=== PATIENT | male | born 1975 | race Two or more races ===

== ENCOUNTER 2024-10-06 23:57 | Inpatient (IN) | payer OTHER ==
[~2024-10-06] VITALS: Ht 190.5 cm; Wt 136.1 kg
--- NOTE | 2024-10-07 00:31 | NUR ---
SE RECIBE MASCULINO ALERTA Y ORIENTADO X3 QUIEN REFIERE DOLOR EN CUADRANTE INFERIOR ASHLEE. PACIENTE REFIERE HX DE DIVERTICULITIS. SE MIDEN S/V Y SE UBICA.
[2024-10-07] MEDS ORDERED: METRONIDAZOLE/SODIUM CHLORIDE 500 MG/100 ML PIGGYBACK IV STA (02:04)
[2024-10-07] MEDS ORDERED: KETOROLAC TROMETHAMINE 30 MG VIAL IV STA (02:04)
[2024-10-07] MEDS ORDERED: CIPROFLOXACIN IN 5 % DEXTROSE 400 MG/200 ML PIGGYBAG IV STA (02:04)
[2024-10-07] MEDS ORDERED: 0.9 % SODIUM CHLORIDE 1,000 ML IV ONE (02:15)
--- NOTE | 2024-10-07 02:57 | NUR ---
SE ORIENTA A PTE SOBRE TX MEDICO EL MISMO INDICA ENTENDER Y ACEPTAR, SE SAL MUESTRAS DE LAB MAS SE ADMINISTRAN MEDICAMENTOS SEGUNN ORDEN MEDICA BAJO MEDIDAS ASEPTICAS.
[2024-10-07 03:41] LABS: BASO % 0.4 % (0.1-1.2); EOS # 0.10 (0.04-0.54); EOS % 0.9 % (0.7-7.0); LYMPH # 0.74 (1.18-3.74); LYMPH % 6.5 % (19.3-53.1); MEAN PLATELET VOLUME 10.00 fl (9.4-12.4); MONO # 1.24 (0.24-0.82); MONO % 10.9 % (4.7-12.5); NEUT # 9.19 (1.56-6.13); NEUT % 80.9 % (34.0-71.1); RED CELL DISTRIBUTION WIDTH 15.2 % (11.6-14.4)
[2024-10-07 03:49] LABS: INR 1.11
[2024-10-07 04:49] LABS: ALT/SGPT 31.0 U/L (12-78); AST/SGOT 23.0 U/L (15-37); BILIRUBIN TOTAL 1.78 mg/dL (0.3-1.2); BUN CREA RATIO 13.0 (7.0-25.0); CREATININE SERUM 1.34 mg/dL (0.70-1.30); GFR 57.14; GLOBULINA 4.2 G/DL (2.4-3.5); GLUCOSE FASTING 115.0 mg/dL (65-100); OSMOLALITY SERUM 278.0 MOSM/KG (275-295)
[2024-10-07 06:27] LABS: URINE CAST 1.61 uL (0.0-1.40); URINE EPITHELIAL CELLS 13.3 uL (0.0-38.8); URINE RBC 21.7 uL (0.0-20.8); URINE WBC 2.0 uL (0.0-23.2)
[2024-10-07 06:53] LABS: URINE APPEARANCE Clear; URINE BILIRRUBIN Small (NEGATIVE); URINE BLOOD Negative; URINE COLOR Orange; URINE GLUCOSE Negative (NEGATIVE); URINE KETONE 15 (NEGATIVE); URINE LEUKOCYTE Trace; URINE NITRATE Negative; URINE PROTEIN Trace (NEGATIVE); URINE UROBILINOGEN 1.0 E.U./dl
[2024-10-07 07:35] LABS: URINE BACTERIA 3.5 uL (0.0-1933)
[2024-10-07] MEDS ORDERED: NIFEDIPINE 10 MG CAPSULE PO ONE (08:15)
[2024-10-07] MEDS ORDERED: MORPHINE SULFATE 4 MG/ML CARTRIDGE IV ONE (10:30)
[2024-10-07] MEDS ORDERED: CEFTRIAXONE SODIUM 2,000 MG VIAL IV STA (14:30)
[2024-10-07] MEDS ORDERED: FAMOTIDINE/PF 20 MG/2 ML VIAL IV SCH (14:32)
[2024-10-07] MEDS ORDERED: RINGERS SOLUTION,LACTATED 1,000 ML IV SCH (14:45)
[2024-10-07] MEDS ORDERED: MORPHINE SULFATE 4 MG/ML VIAL IV PRN (15:00)
[2024-10-07] MEDS ORDERED: ENALAPRILAT DIHYDRATE 1.25 MG/ML VIAL IV PRN (15:00)
[2024-10-07 15:24] LABS: COVID-19 AG NEGATIVE (NEGATIVE)
[2024-10-07] MEDS ORDERED: MORPHINE SULFATE 4 MG/ML CARTRIDGE IV PRN (17:00)
[2024-10-07 20:00] VITALS: BP 162/98; O2SAT 95
[2024-10-08 01:43] VITALS: BP 137/83; O2SAT 98
[2024-10-08 07:48] VITALS: BP 136/84; O2SAT 96
[2024-10-08 08:21] LABS: BASO % 0.4 % (0.1-1.2); EOS # 0.15 (0.04-0.54); EOS % 1.4 % (0.7-7.0); LYMPH # 0.82 (1.18-3.74); LYMPH % 7.8 % (19.3-53.1); MEAN PLATELET VOLUME 10.20 fl (9.4-12.4); MONO # 1.04 (0.24-0.82); MONO % 9.9 % (4.7-12.5); NEUT # 8.43 (1.56-6.13); NEUT % 80.0 % (34.0-71.1); RED CELL DISTRIBUTION WIDTH 15.3 % (11.6-14.4)
[2024-10-08 08:35] LABS: ERYTHROCYTE SEDIMENTATION RATE 21 mm/hr (0-15)
[2024-10-08] MEDS ORDERED: CEFTRIAXONE SODIUM 2,000 MG VIAL IV SCH (09:00)
[2024-10-08 09:22] LABS: ALT/SGPT 24.0 U/L (12-78); AST/SGOT 14.0 U/L (15-37); BILIRUBIN TOTAL 0.92 mg/dL (0.3-1.2); BUN CREA RATIO 11.0 (7.0-25.0); CREATININE SERUM 1.07 mg/dL (0.70-1.30); GFR 74.08; GLOBULINA 3.4 G/DL (2.4-3.5); GLUCOSE FASTING 85.0 mg/dL (65-100); OSMOLALITY SERUM 280.0 MOSM/KG (275-295)
[2024-10-08 15:29] VITALS: BP 139/70; O2SAT 95
[2024-10-08] MEDS ORDERED: AA 4.25%/CAL/LYTES/DEXT 5% 1,000 ML PERIFERAL SCH (17:00)
[2024-10-08 18:38] LABS: CHOL HDL RATIO 5.6 (0-5.0); HDL 30.0 mg/dl (40-60); LDL 106.0 mg/dl (0-130); VLDL 30.0 (0-39)
[2024-10-09 00:46] VITALS: BP 136/80; O2SAT 98
[2024-10-09 08:00] VITALS: BP 138/74; O2SAT 96
[2024-10-09] MEDS ORDERED: LACTOBACILLUS ACIDOPHILUS 1 CAP CAP PO SCH (13:35)
[2024-10-09 17:07] VITALS: BP 67/41; O2SAT 95
[2024-10-09 18:39] VITALS: BP 166/91
[2024-10-10 02:27] VITALS: O2SAT 95
[2024-10-10 07:28] LABS: BASO % 0.5 % (0.1-1.2); EOS # 0.32 (0.04-0.54); EOS % 4.2 % (0.7-7.0); LYMPH # 1.24 (1.18-3.74); LYMPH % 16.4 % (19.3-53.1); MEAN PLATELET VOLUME 10.10 fl (9.4-12.4); MONO # 0.60 (0.24-0.82); MONO % 7.9 % (4.7-12.5); NEUT # 5.34 (1.56-6.13); NEUT % 70.7 % (34.0-71.1); RED CELL DISTRIBUTION WIDTH 14.6 % (11.6-14.4)
[2024-10-10 08:29] LABS: ALT/SGPT 24.0 U/L (12-78); AST/SGOT 19.0 U/L (15-37); BILIRUBIN TOTAL 0.66 mg/dL (0.3-1.2); BUN CREA RATIO 13.0 (7.0-25.0); CREATININE SERUM 0.87 mg/dL (0.70-1.30); GFR 94.06; GLOBULINA 3.6 G/DL (2.4-3.5); GLUCOSE FASTING 77.0 mg/dL (65-100); OSMOLALITY SERUM 279.0 MOSM/KG (275-295)
[2024-10-10 09:04] VITALS: BP 199/132; O2SAT 98
[2024-10-10] MEDS ORDERED: AMLODIPINE BESYLATE 5 MG TABLET PO NR (11:00)
[2024-10-10 16:33] VITALS: BP 162/105; O2SAT 96
[2024-10-10 19:00] VITALS: BP 169/108
[2024-10-10] MEDS ORDERED: AMLODIPINE BESYLATE 5 MG TABLET PO ONE (20:45)
[2024-10-10 22:02] VITALS: BP 190/136
[2024-10-10] MEDS ORDERED: hydrALAZINE HCL 20 MG VIAL IV STA (22:04)
[2024-10-10] MEDS ORDERED: hydrALAZINE HCL 20 MG VIAL IV PRN (22:15)
[2024-10-11 00:30] VITALS: BP 134/79; O2SAT 97
[2024-10-11 04:25] VITALS: BP 163/109; O2SAT 96
[2024-10-11] MEDS ORDERED: ACETAMINOPHEN 325 MG TABLET PO PRN (04:45)
[2024-10-11] MEDS ORDERED: ACETAMINOPHEN 500 MG GEL..CAP PO PRN (04:45)
[2024-10-11 06:09] VITALS: BP 146/94
[2024-10-11] MEDS ORDERED: AMLODIPINE BESYLATE 5 MG TABLET PO SCH (09:00)
[2024-10-11] MEDS ORDERED: CIPRO500 MG PO (13:41)
[2024-10-11] MEDS ORDERED: ROSUVASTATIN CAL5 MG PO (13:41)
[2024-10-11] MEDS ORDERED: INTESTINEX680 M1 PO (13:42)
[2024-10-11] MEDS ORDERED: METRONIDAZOLE500 MG PO (13:42)
[2024-10-11] MEDS ORDERED: AMLODIPINE BESYL5 MG PO (13:43)
== END 2024-10-11 15:00 | disposition home or self-care (01) | DRG 392 ==
LOC: ER 10-07 00:18 → SEC-K 10-07 15:28 → SURG 10-07 17:54
PROVIDERS: General Practice; ADMIT Internal Medicine; ATTEND Internal Medicine
PROC: BW21ZZZ Computerized Tomography (CT Scan) of Abdomen and Pelvis (ICD-10-PCS; principal; 2024-10-07)
DX: K57.20 Diverticulitis of large intestine with perforation and abscess without bleeding (principal); N17.9 Acute kidney failure, unspecified; I10 Essential (primary) hypertension